=== PATIENT | male | born 1945 | race Caucasian/White ===

== ENCOUNTER 2020-11-04 13:25 | Emergency (ER) | payer OTHER ==
[~2020-11-04] VITALS: Ht 172.7 cm; Wt 86.2 kg
[2020-11-04] MEDS ORDERED: LISINOPRIL10 MG PO (13:40)
[2020-11-04 14:29] LABS: ABSOLUTE EOSINOPHILS 0.4 thou/uL (0.0-0.7); ABSOLUTE LYMPHOCYTES 1.3 thou/uL (0.8-5.3); ABSOLUTE MONOCYTES 0.7 thou/uL (0.0-1.2); ABSOLUTE NEUTROPHILS 3.4 thou/uL (1.6-8.1); BASOPHILS 0.5 %; EOSINOPHILS 6.8 %; HEMATOCRIT 41.2 % (42.0-52.0); HEMOGLOBIN 14.3 gm/dL (14.0-18.0); LYMPHOCYTES 21.8 %; MCH 31.5 pg (26.0-34.0); MCHC 34.8 g/dL (28.0-37.0); MCV 90.6 fL (80.0-100.0); MONOCYTES 11.9 %; MPV 8.9 fl. (7.2-11.1); NUCLEATED RBCS 0 /100WBC; PLATELET COUNT* 163 thou/uL (150-400); RBC 4.55 mil/uL (4.50-6.00); RDW-CV 13.4 % (10.5-14.5); WBC 5.8 thou/uL (4.0-11.0)
[2020-11-04 14:45] LABS: CALCIUM 8.2 mg/dL (8.5-10.1); CREATININE 1.2 mg/dL (0.6-1.3); POTASSIUM 3.7 mmol/L (3.5-5.1)
[2020-11-04 15:12] VITALS: BP 156/88
[2020-11-04 15:18] LABS: ALBUMIN 3.7 g/dL (3.4-5.0); CK-MB MASS 1.8 ng/mL (<0.5-3.6); MAGNESIUM 1.9 mg/dL (1.8-2.4); TOTAL BILIRUBIN 0.4 mg/dL (<0.1-1.0); TOTAL PROTEIN 7.2 g/dL (6.4-8.2)
--- NOTE | 2020-11-04 15:25 | EKG ---
[place] [address] ELECTROCARDIOGRAM REPORT Name: SLYELÍAS Monge Room: [facility]#: [id number] Admission: 11/04/20 Attend Phys: Discharge: 11/04/20 Date of : 45 Date of Service: 11/04/20 1343 Report #: [id number] THIS REPORT FOR: //name// [facility] ED Test Date: 2020-11-04 Test Time: 13:43:00 Pat Name: ELÍAS HEART Department: Room: Gender: Mental Health Program Specialist: [facility] : 1945 Requested By: Tremaine Sanchez Order Number: [id number] MD: Stoney Liang Measurements Intervals [place] Rate: 67 P: 10 NM: 191 QRS: -17 QRSD: 141 T: 13 QT: 424 QTc: 448 Interpretive Statements Sinus rhythm Right bundle branch block No previous ECG available for comparison Electronically Signed On 11-04-2020 15:25:03 CDT by Stoney Liang [email or web address] <ELECTRONICALLY SIGNED> By: Stoney Liang MD, [facility] 11/04/20 1525 1343 42 Stoney Liang MD, [facility] /EPI
== END 2020-11-04 15:12 | disposition home or self-care (01) ==
LOC: M.ERS 13:25
PROVIDERS: Family Medicine
DX: R07.89 Other chest pain (principal); I10 Essential (primary) hypertension; G47.33 Obstructive sleep apnea (adult) (pediatric); E11.9 Type 2 diabetes mellitus without complications